=== PATIENT | male | born 1970 | race Two or more races ===

== ENCOUNTER 2017-06-24 10:02 | Emergency (ER) | payer OTHER ==
[~2017-06-24] VITALS: Ht 172.7 cm; Wt 113.4 kg
--- NOTE | 2017-06-24 10:32 | PHYS DOC ---
Past Medical History Past Medical History: Diabetes-Type II, High Cholesterol, Hypertension Past Surgical History: No Surgical History Alcohol Use: Occasionally Drug Use: None Adult General Chief Complaint Chief Complaint: NOSEBLEED HPI HPI Patient is a 47 year old male with history of hypertension diabetes and high cholesterol who presents today with nosebleed that occurred at 6:30 and 9 AM. Patient states he has previous history of nosebleeds. Patient states this 9 AM nose bleed episode did not stop hence the reason he came to the ED. Patient denies any trauma. Review of Systems Review of Systems Constitutional: Denies fever or chills [] Eyes: Denies change in visual acuity, redness, or eye pain [] HENT: nose bleeding Respiratory: Denies cough or shortness of breath [] Cardiovascular: No additional information not addressed in HPI [] GI: Denies abdominal pain, nausea, vomiting, bloody stools or diarrhea [] : Denies dysuria or hematuria [] Musculoskeletal: Denies back pain or joint pain [] Integument: Denies rash or skin lesions [] Neurologic: Denies headache, focal weakness or sensory changes [] Endocrine: Denies polyuria or polydipsia [] Allergies Allergies Allergies Coded Allergies Type Severity Reaction Last Updated Verified No Known Drug Allergies 07/08/16 No Physical Exam Physical Exam Constitutional: Well developed, well nourished, no acute distress, non-toxic appearance. [] HENT: Normocephalic, atraumatic, bilateral external ears normal, oropharynx moist, no oral exudates, Bilateral nasal turbinates with no bleeding. Eyes: PERRLA, EOMI, conjunctiva normal, no discharge. [] Neck: Normal range of motion, no tenderness, supple, no stridor. [] Cardiovascular:Heart rate regular rhythm, no murmur [] Lungs & Thorax: Bilateral breath sounds clear to auscultation [] Abdomen: Bowel sounds normal, soft, no tenderness, no masses, no pulsatile masses. [] Skin: Warm, dry, no erythema, no rash. [] Back: No tenderness, no CVA tenderness. [] Extremities: No tenderness, no cyanosis, no clubbing, ROM intact, no edema. [] Neurologic: Alert and oriented X 3, normal motor function, normal sensory function, no focal deficits noted. [] Psychologic: Affect normal, judgement normal, mood normal. [] EKG EKG [] Radiology/Procedures Radiology/Procedures [] Course & Med Decision Making Course & Med Decision Making Pertinent Labs and Imaging studies reviewed. (See chart for details) Patient is in the ED to be evaluated for nose bleeding that began at 9 AM. He is no longer nose bleeding upon arrival to the ED. He has history of HTN and on medications. No trauma to cause his nose bleeding today. He also has history of nosebleeds. We talked about methods of managing episodes of nose bleeding. I did give him Afrin in the ED to use next time in case he is having trouble stopping the bleeding by pinching his nose. Informed him if Afrin does not stop nonbleeding he needs to come to the ED. He is to follow-up with his own PCP in one week. Dragon Disclaimer Dragon Disclaimer This electronic medical record was generated, in whole or in part, using a voice recognition dictation system. Departure Departure Impression: Primary Impression: Epistaxis Disposition: HOME, SELF-CARE Condition: STABLE Referrals: UNKNOWN PCP NAME (PCP) Follow-up with your doctor on Tuesday next week Patient Instructions: Nosebleed, [id number] Additional Instructions: You were seen for nose bleeding episodes. Your current nosebleed has stopped. If you have another episode of nose bleeding stop it pinching the nose as you were shown in the ED. You can also use Afrin too. If the nosebleed does not stop please come back to the ED. Follow-up with your doctor on Tuesday or any time next week. DELL BAUTISTA APRN Jun 24, 2017 10:32
[2017-06-24 10:45] VITALS: BP 146/89
[2017-06-24] MEDS ORDERED: OXYMETAZOLINE 0.05% NASAL SPRAY 30ML BOTTLE. NS ONE (10:45)
== END 2017-06-24 11:00 | disposition home or self-care (01) ==
LOC: ER 10:02
DX: R04.0 Epistaxis (principal); E11.9 Type 2 diabetes mellitus without complications; E78.00 Pure hypercholesterolemia, unspecified; I10 Essential (primary) hypertension
CPT/HCPCS: 99282

== ENCOUNTER 2017-10-14 21:53 | Inpatient (IN) | payer OTHER ==
[~2017-10-14] VITALS: Ht 182.9 cm; Wt 113.4 kg
--- NOTE | 2017-10-14 22:01 | PHYS DOC ---
Past Medical History Past Medical History: Diabetes-Type II, High Cholesterol, Hypertension Past Surgical History: No Surgical History Alcohol Use: Occasionally Drug Use: None Adult General Chief Complaint Chief Complaint: ALTERED MENTAL STATUS HPI HPI Patient is a 47 year old male who presents with sinus. According EMS his stated he had a beer or 2 around 6 PM and fell asleep at that time. She noticed he was actually hard to try to wake up so she called 911. EMS in route noted his sugar 380, gave him 0.5 mg of Narcan without any response. Here he will open his eyes to sternal rub his eyes are 2 mm bilaterally. He does not have any focal deficits but is very somnolent. According to EMS his past medical history of hypertension, HEIDY, diabetes. He is on lisinopril and metformin. According his he drove back from [place] and he drank 3 beers in the car. She states she ate some leftovers around 6:00 and then he was sitting on the edge of bed at 8:30 and then was very sleepy and fell forwards on the floor hitting his head. She states that he became slightly combative and then he's been difficult to arouse since then. Review of Systems Review of Systems Unable to obtain secondary to patient's somnolence Current Medications Current Medications Allergies Allergies Allergies Coded Allergies Type Severity Reaction Last Updated Verified No Known Drug Allergies 07/08/16 No Physical Exam Physical Exam Constitutional: Well developed, well nourished, no acute distress, non-toxic appearance. [] HENT: Normocephalic, atraumatic, bilateral external ears normal, oropharynx moist, no oral exudates, nose normal. [] Eyes: PERRLA, conjunctiva normal, no discharge. Os 2 mm bilaterally Neck: Normal range of motion, no step-offs noted, supple, no stridor. [] Cardiovascular:Heart rate regular rhythm, no murmur [] Lungs & Thorax: Bilateral breath sounds clear to auscultation [] Abdomen: Bowel sounds normal, soft, no tenderness, no masses, no pulsatile masses. [] Skin: Warm, dry, no erythema, no rash. [] Back: No tenderness, no CVA tenderness. [] Extremities: No tenderness, no cyanosis, no clubbing, ROM intact, no edema. [] Neurologic: Somnolent normal motor function, normal sensory function, no focal deficits noted. [] Current Patient Data Vital Signs Vital Signs Date Time Temp Pulse Resp B/P (MAP) Pulse Ox O2 Delivery O2 Flow Rate FiO2 10/14/17 22:57 100 20 96 10/14/17 22:00 98.0 146/89 (108) Room Air 98.0 Lab Values Laboratory Tests Test 10/14/17 21:53 10/14/17 21:59 10/14/17 22:00 10/14/17 22:05 White Blood Count 4.5 x10^3/uL (4.0-11.0) Red Blood Count 4.68 x10^6/uL (4.30-5.70) Hemoglobin 16.1 g/dL (13.0-17.5) Hematocrit 46.1 % (39.0-53.0) Mean Corpuscular Volume 99 fL (79-100) Mean Corpuscular Hemoglobin 34 pg (25-35) Mean Corpuscular Hemoglobin Concent 35 g/dL (31-37) Red Cell Distribution Width 13.1 % (11.5-14.5) Platelet Count 158 x10^3/uL (140-400) Neutrophils (%) (Auto) 31 % (31-73) Lymphocytes (%) (Auto) 56 % (24-48) H Monocytes (%) (Auto) 11 % (0-9) H Eosinophils (%) (Auto) 1 % (0-3) Basophils (%) (Auto) 1 % (0-3) Neutrophils # (Auto) 1.4 x10^3uL (1.8-7.7) L Lymphocytes # (Auto) 2.5 x10^3/uL (1.0-4.8) Monocytes # (Auto) 0.5 x10^3/uL (0.0-1.1) Eosinophils # (Auto) 0.1 x10^3/uL (0.0-0.7) Basophils # (Auto) 0.0 x10^3/uL (0.0-0.2) Prothrombin Time 12.7 SEC (11.7-14.0) Prothrombin Time INR 1.0 (0.8-1.1) PTT 27 SEC (24-38) Sodium Level 133 mmol/L (136-145) L Potassium Level 3.7 mmol/L (3.5-5.1) Chloride Level 98 mmol/L (98-107) Carbon Dioxide Level 23 mmol/L (21-32) Anion Gap 12 (6-14) 14 mmol/L (6-14) Blood Urea Nitrogen 11 mg/dL (8-26) Creatinine 0.8 mg/dL (0.7-1.3) Estimated GFR (Cockcroft-Gault) 103.2 Glucose Level 321 mg/dL (70-99) H 324 mg/dL (70-99) H Lactic Acid Level 2.2 mmol/L (0.4-2.0) H Calcium Level 8.5 mg/dL (8.5-10.1) Magnesium Level 2.4 mg/dL (1.8-2.4) Total Bilirubin 0.2 mg/dL (0.2-1.0) Direct Bilirubin 0.1 mg/dL (0.0-0.2) Aspartate Amino Transferase (AST) 27 U/L (15-37) Alanine Aminotransferase (ALT) 63 U/L (16-63) Alkaline Phosphatase 80 U/L (46-116) Ammonia 14 mcmol/L (11-34) Creatine Kinase 104 U/L (39-308) Creatine Kinase MB (Mass) 0.5 ng/mL (0.0-3.6) Creatine Kinase MB Relative Index 0.5 % (0-4) Troponin I Quantitative < 0.017 ng/mL (0.000-0.055) IK-Cog-Q-Type Natriuretic Peptide 8 pg/mL (0-124) Total Protein 7.9 g/dL (6.4-8.2) Albumin 3.5 g/dL (3.4-5.0) Salicylates Level < 2.8 mg/dL (2.8-20.0) L Salicylate Last Dose Date Unknown Salicylate Last Dose Time Unknown Acetaminophen Level < 2.0 mcg/ml (10-30) L Acetaminophen Last Dose Date Unknown Acetaminophen Last Dose Time Unknown Ethyl Alcohol Level 225 mg/dL (0-10) H POC Troponin I 0.00 ng/ml (<0.08) POC Hemoglobin 15.6 g/dL (14-18) POC Hematocrit 46 % (37-52) POC Sodium 133 mmol/L (135-145) L POC Potassium 3.9 mmol/L (3.5-5.0) POC Chloride 101 mmol/L (98-110) POC Total CO2 22 mmol/L (23-32) L POC Blood Urea Nitrogen 8 mg/dL (8-26) POC Creatinine 1.0 mg/dL (0.5-1.4) POC Ionized Calcium (Marjan) 1.04 mmol/L (1.13-1.32) L Urine Collection Type Unknown Urine Color Yellow Urine Clarity Clear Urine pH 5.5 Urine Specific [place] 1.010 Urine Protein Negative mg/dL (NEG-TRACE) Urine Glucose (UA) >=1000 mg/dL (NEG) Urine Ketones (Stick) Negative mg/dL (NEG) Urine Blood Negative (NEG) Urine Nitrite Negative (NEG) Urine Bilirubin Negative (NEG) Urine Urobilinogen Dipstick 0.2 mg/dL (0.2 mg/dL) Urine Leukocyte Esterase Negative (NEG) Urine RBC 0 /HPF (0-2) Urine WBC 0 /HPF (0-4) Urine Squamous Epithelial Cells Few /LPF Urine Bacteria 0 /HPF (0-FEW) O2 Saturation 91 % (92-99) L Arterial Blood pH 7.33 (7.35-7.45) L Arterial Blood pCO2 at Patient Temp 34 mmHg (35-46) L Arterial Blood pO2 at Patient Temp 67 mmHg (75-108) L Arterial Blood HCO3 18 mmol/L (21-28) L Arterial Blood Base Excess -7 mmol/L (-3-3) L FiO2 21.0 Urine Opiates Screen Neg (NEG) Urine Methadone Screen Neg (NEG) Urine Barbiturates Neg (NEG) Urine Phencyclidine Screen Neg (NEG) Urine Amphetamine/Methamphetamine Neg (NEG) Urine Benzodiazepines Screen Neg (NEG) Urine Cocaine Screen Neg (NEG) Urine Cannabinoids Screen Neg (NEG) Urine Ethyl Alcohol Pos (NEG) Laboratory Tests 10/14/17 21:53 Laboratory Tests 10/14/17 21:53 10/14/17 22:00 EKG EKG DG shows sinus tachycardia with a rate of [address] elevations or T -wave inversions, and axis deviation noted, QTC 430, as interpreted by me. Radiology/Procedures Radiology/Procedures [facility] [address] [place], [place] [id number] IMAGING REPORT Signed PATIENT: YADYZaidELIZABETH ACCOUNT: [id number] : 1970 LOCATION: ER AGE: 47 SEX: M EXAM STATUS: REG ER ORD. PHYSICIAN: MAYTE KAISER MD REASON: AMS PROCEDURE: CT HEAD AND CERVICAL SPINE WO CT scan of the head without contrast 10/14/2017 Clinical History: Fall with altered mental status. Technique: Unenhanced, contiguous, 5 mm axial sections were obtained through the head. One or more of the following individualized dose reduction techniques were utilized for this study: 1. Automated exposure control. 2. Adjustment of the mA and/or kV according to patient size. 3. Use of iterative reconstruction technique. Findings: The ventricles and sulci are within normal limits in size and configuration. No focal area of abnormal attenuation is seen involving the brain parenchyma. No extra-axial fluid collection is seen. No skull fracture is seen. Impression: Negative study. CT scan of the cervical spine without contrast 10/14/2017 Clinical history: Fall with neck injury Technique: Unenhanced, contiguous, 0.625 mm axial sections were obtained through the cervical spine. Axial, coronal and sagittal reconstructed images were obtained. One or more of the following individualized dose reduction techniques were utilized for this study: 1. Automated exposure control. 2. Adjustment of the mA and/or kV according to patient size. 3. Use of iterative reconstruction technique. Findings: Sagittal and coronal reconstructed images demonstrate mild straightening of the normal cervical lordosis. No fracture or subluxation cervical vertebrae is seen. Degenerative changes are seen involving the uncovertebral and facet joints throughout the cervical disc spaces. Impression: No fracture or subluxation of the cervical vertebra is identified. Electronically signed by: Magan Munoz MD (10/14/2017 10:47 PM) [facility] DICTATED and SIGNED BY: MAGAN MUNOZ MD DATE: 10/14/17 1820 CC: MAYTE KAISER MD; AIDA CORRAL ~ Chest x-ray did not show any focal consolidations, bony abnormality's, pneumothorax, as interpreted by me. Impressions: Altered mental status Alcohol intoxication Diabetes Hypertension Obstructive sleep apnea Course & Med Decision Making Course & Med Decision Making Pertinent Labs and Imaging studies reviewed. (See chart for details) He is becoming more responsive and is able to write the date down but otherwise he still slurring his words and not waking up appropriately. CT head neck nonacute. ABG does not show any acute abnormalities. He is receiving IV fluids and be admitted the ICU for observation overnight to the hospitalist. Family is agreeable plan. Despite this is likely secondary to alcohol abuse however we'll admit to ICU for further monitoring. I went to remove his c-collar but he did removed it himself according to the . He has been moving all of his extremities. Critical care time 55 minutes of critical care time was used on this patient excluding procedures. Dragon Disclaimer Dragon Disclaimer This electronic medical record was generated, in whole or in part, using a voice recognition dictation system. Departure Departure Impression: Primary Impression: Altered mental status Disposition: ADMITTED INPATIENT Admitting Physician: Tesfaye Owens Condition: CRITICAL Referrals: AIDA CORRAL (PCP) MAYTE KAISER MD Oct 14, 2017 22:01
[2017-10-14 22:05] LABS: POTASSIUM ISTAT 3.9 mmol/L (3.5-5.0)
[2017-10-14] MEDS ORDERED: AMMONIA AROMATIC 15% INHALANT AMPUL. ONE (22:11)
[2017-10-14 22:17] LABS: BASO % 1 % (0-3); EOS % 1 % (0-3); HEMATOCRIT 46.1 % (39.0-53.0); HEMOGLOBIN 16.1 g/dL (13.0-17.5); LYMPH # 2.5 x10^3/uL (1.0-4.8); LYMPH % 56 % (24-48); MEAN CORPUSCULAR HEMOGLOBIN 34 pg (25-35); MEAN CORPUSCULAR HGB CONC 35 g/dL (31-37); MEAN CORPUSCULAR VOLUME 99 fL (79-100); MONO % 11 % (0-9); NEUT % 31 % (31-73); PLATELET COUNT 158 x10^3/uL (140-400); RED BLOOD COUNT 4.68 x10^6/uL (4.30-5.70); RED CELL DISTRIBUTION WIDTH 13.1 % (11.5-14.5); WHITE BLOOD COUNT 4.5 x10^3/uL (4.0-11.0)
[2017-10-14 22:20] LABS: HCO3 ABG 18 mmol/L (21-28); PCO2 ABG 34 mmHg (35-46); PH ABG 7.33 (7.35-7.45); PO2 ABG 67 mmHg (75-108); SAT O2 ABG 91 % (92-99)
[2017-10-14 22:21] LABS: BILIRUBIN,URINE NEGATIVE (NEG); GLUCOSE,URINE >=1000 mg/dL (NEG); NITRITE,URINE NEGATIVE (NEG); PH,URINE 5.5; PROTEIN,URINE NEGATIVE (NEG-TRACE); UROBILINOGEN,URINE 0.2 mg/dL (0.2 mg/dL)
[2017-10-14 22:27] LABS: PROTHROMBIN TIME PATIENT 12.7 SEC (11.7-14.0)
[2017-10-14 22:38] LABS: BACTERIA,URINE 0 /HPF (0-FEW); RBC,URINE 0 /HPF (0-2); SQUAMOUS EPITHELIAL CELL,UR FEW /LPF; WBC,URINE 0 /HPF (0-4)
[2017-10-14 22:39] LABS: BARBITURATES NEG (NEG); BENZODIAZEPINES NEG (NEG); CANNABINOIDS NEG (NEG); COCAINE NEG (NEG); METHADONE NEG (NEG); OPIATES NEG (NEG); PHENCYCLIDINE NEG (NEG)
[2017-10-14 22:42] LABS: CALCIUM 8.5 mg/dL (8.5-10.1); CREATININE 0.8 mg/dL (0.7-1.3); GFR 103.2; POTASSIUM 3.7 mmol/L (3.5-5.1)
--- NOTE | 2017-10-14 22:50 | RAD ---
CT scan of the head without contrast 10/14/2017 Clinical History: Fall with altered mental status. Technique: Unenhanced, contiguous, 5 mm axial sections were obtained through the head. One or more of the following individualized dose reduction techniques were utilized for this study: 1. Automated exposure control. 2. Adjustment of the mA and/or kV according to patient size. 3. Use of iterative reconstruction technique. Findings: The ventricles and sulci are within normal limits in size and configuration. No focal area of abnormal attenuation is seen involving the brain parenchyma. No extra-axial fluid collection is seen. No skull fracture is seen. Impression: Negative study. CT scan of the cervical spine without contrast 10/14/2017 Clinical history: Fall with neck injury Technique: Unenhanced, contiguous, 0.625 mm axial sections were obtained through the cervical spine. Axial, coronal and sagittal reconstructed images were obtained. One or more of the following individualized dose reduction techniques were utilized for this study: 1. Automated exposure control. 2. Adjustment of the mA and/or kV according to patient size. 3. Use of iterative reconstruction technique. Findings: Sagittal and coronal reconstructed images demonstrate mild straightening of the normal cervical lordosis. No fracture or subluxation cervical vertebrae is seen. Degenerative changes are seen involving the uncovertebral and facet joints throughout the cervical disc spaces. Impression: No fracture or subluxation of the cervical vertebra is identified. Electronically signed by: Magan Munoz MD (10/14/2017 10:47 PM) [facility]
[2017-10-14 22:54] LABS: ETHANOL 225 mg/dL (0-10)
[2017-10-14 22:55] LABS: ALBUMIN 3.5 g/dL (3.4-5.0); DIRECT BILIRUBIN 0.1 mg/dL (0.0-0.2); MAGNESIUM 2.4 mg/dL (1.8-2.4); TOTAL BILIRUBIN 0.2 mg/dL (0.2-1.0); TOTAL PROTEIN 7.9 g/dL (6.4-8.2)
[2017-10-14 22:59] LABS: CKMB MASS 0.5 ng/mL (0.0-3.6)
[2017-10-14] MEDS ORDERED: ONDANSETRON PF 4 MG/2 ML VIAL. IV PRN (23:15)
[2017-10-14] MEDS ORDERED: GLIP10TA13 PO (23:24)
[2017-10-14] MEDS ORDERED: METF-620 PO (23:24)
[2017-10-14] MEDS ORDERED: LISI-334 PO (23:24)
[2017-10-14] MEDS ORDERED: GEMF600T3 PO (23:24)
[2017-10-14] MEDS ORDERED: IV NORMAL SALINE 1000ML BAG 1,000 ML IV ONE ×2 (23:30)
[2017-10-15] VITALS (11 sets, daily range): BP systolic 100–154; BP diastolic 63–92
[2017-10-15] MEDS ORDERED: ACETAMINOPHEN 325 MG TABLET. PO PRN (00:30)
[2017-10-15] MEDS ORDERED: MULTIVIT INFUSN,ADULT 4,VIT K 10 ML, THIAMINE 100 MG, FOLIC ACID 1 MG in IV NORMAL SALI... IV ONE (01:00)
[2017-10-15] MEDS ORDERED: IV NORMAL SALINE 1000ML BAG 1,000 ML IV SCH (01:00)
[2017-10-15 06:03] LABS: BASO % 1 % (0-3); EOS % 1 % (0-3); HEMATOCRIT 41.2 % (39.0-53.0); HEMOGLOBIN 14.1 g/dL (13.0-17.5); LYMPH # 1.6 x10^3/uL (1.0-4.8); LYMPH % 37 % (24-48); MEAN CORPUSCULAR HEMOGLOBIN 34 pg (25-35); MEAN CORPUSCULAR HGB CONC 34 g/dL (31-37); MEAN CORPUSCULAR VOLUME 99 fL (79-100); MONO % 11 % (0-9); NEUT % 51 % (31-73); PLATELET COUNT 147 x10^3/uL (140-400); RED BLOOD COUNT 4.19 x10^6/uL (4.30-5.70); RED CELL DISTRIBUTION WIDTH 13.1 % (11.5-14.5); WHITE BLOOD COUNT 4.4 x10^3/uL (4.0-11.0)
[2017-10-15 06:30] LABS: CALCIUM 7.4 mg/dL (8.5-10.1); CREATININE 0.7 mg/dL (0.7-1.3); GFR 120.4
[2017-10-15] MEDS ORDERED: glipiZIDE 5 MG TABLET PO SCH (07:30)
--- NOTE | 2017-10-15 08:23 | RAD ---
Single view chest History:Syncope, altered mental status An AP view of the chest is submitted. Comparison: 07/08/2016. Findings: There is suboptimal inspiration, low lung volumes. There is mild opacity right lung base probably due to atelectasis. There may be a very small right pleural effusion. There is no pneumothorax. Cardiac silhouette is stable, borderline to slightly prominent. Appearance of more prominent mediastinal width is probably accentuated by lesser degree of inspiration. Impression: 1. There is poor inspiration. There is right base opacity probably due to atelectasis. There may be of very small right pleural effusion. 2. Appearance of more prominent mediastinal width may be accentuated by poor inspiration.
[2017-10-15] MEDS ORDERED: THIAMINE 100 MG TABLET. PO SCH (09:00)
[2017-10-15] MEDS ORDERED: MULTIVITAMIN with MINERAL TABLET. PO SCH (09:00)
[2017-10-15] MEDS ORDERED: GEMFIBROZIL 600 MG TABLET. PO SCH (09:00)
[2017-10-15] MEDS ORDERED: LISINOPRIL 20 MG TABLET PO SCH (09:00)
[2017-10-15] MEDS ORDERED: FOLIC ACID 1 MG TABLET. PO SCH (09:00)
--- NOTE | 2017-10-15 11:20 | EKG ---
[facility] [address] [place] [address] Test Date: 2017-10-14 Test Time: 21:59:12 Pat Name: ELIZABETH MIX Department: Room: 111 1 Gender: M Assistant Media Planner: : 1970 Requested By: MAYTE KAISER Order Number: [id number] Reading MD: Mateusz Ngo Measurements Intervals Feura Bush Rate: 107 P: 42 WV: 176 QRS: -15 QRSD: 90 T: 36 QT: 318 QTc: 430 Interpretive Statements SINUS TACHYCARDIA LEFTWARD AXIS Electronically Signed On 10-24-2017 14:15:00 JEWELRY SALES COORDINATOR by Mateusz Ngo
--- NOTE | 2017-10-16 12:24 | SSS ---
ADMIT DATE: 10/15/2017 CHIEF COMPLAINT: Mental status change and alcohol intoxication. HISTORY OF PRESENT ILLNESS: The patient is a pleasant 47-year-old male who came in drunk. Apparently, his called EMS. He was hard to wake up. I discussed the case with ER physician. His alcohol level was over 300. We wanted to admit him overnight to the ICU. This morning, he is back to his baseline and wanted to go home. PAST MEDICAL HISTORY: Diabetes, hypertension, hyperlipidemia, possible alcohol abuse. ALLERGIES: None. FAMILY HISTORY: Diabetes. SOCIAL HISTORY: He drinks. He is . MEDICATIONS: Reviewed. REVIEW OF SYSTEMS: GENERAL: No history of weight change, weakness or fevers. SKIN: No bruising, hair changes or rashes. EYES: No blurred, double or loss of vision. NOSE AND THROAT: No history of nosebleeds, hoarseness or sore throat. HEART: No history of palpitations, chest pain or shortness of breath on exertion. LUNGS: Denies cough, hemoptysis, wheezing or shortness of breath. GASTROINTESTINAL: Denies changes in appetite, nausea, vomiting, diarrhea or constipation. GENITOURINARY: No history of frequency, urgency, hesitancy or nocturia. NEUROLOGIC: Denies history of numbness, tingling, tremor or weakness. PSYCHIATRIC: No history of panic, anxiety or depression. ENDOCRINE: No history of heat or cold intolerance, polyuria or polydipsia. EXTREMITIES: Denies muscle weakness, joint pain, pain on walking or stiffness. PHYSICAL EXAMINATION: VITAL SIGNS: Stable. GENERAL: He is alert, cooperative. HEART: Normal S1, S2. LUNGS: Clear. ABDOMEN: Soft. EXTREMITIES: No edema. SKIN: No rashes. ENDOCRINE: No thyromegaly. LYMPHATICS: No cervical nodes. HEMATOPOIETIC: No bruising. ASSESSMENT AND PLAN: Resolving alcohol intoxication. We will go ahead and discharge. DISPOSITION: Home. ACTIVITY: As tolerated. DIET: Low sodium. MEDICATIONS: Please see MRAD. TOTAL TIME: 32 minutes. FARAL Azar GEE DO DR: FEDERICO/krishna JOB#: [id number] / [id number]
== END 2017-10-15 11:20 | disposition home or self-care (01) | DRG 896 ==
LOC: ER 21:53 → 1 WEST ICU 23:05
PROVIDERS: ADMIT Internal Medicine; ATTEND Internal Medicine
DX: F10.129 Alcohol abuse with intoxication, unspecified (principal); G93.41 Metabolic encephalopathy; E11.9 Type 2 diabetes mellitus without complications; E78.00 Pure hypercholesterolemia, unspecified; E78.5 Hyperlipidemia, unspecified; Y90.8 Blood alcohol level of 240 mg/100 ml or more; I10 Essential (primary) hypertension; G47.33 Obstructive sleep apnea (adult) (pediatric); Z79.899 Other long term (current) drug therapy; Z79.84 Long term (current) use of oral hypoglycemic drugs; Z83.3 Family history of diabetes mellitus
CPT/HCPCS: 36415; 36600; 70450; 71010; 72125; 80047; 80048; 80076; 80307; 80329; 81001; 82140; 82553; 82805; 83605; 83735; 83880; 84484; 85025; 85610; 85730; 87641; 93005; G0480; J7030; 99291-25; G0479